=== PATIENT | male | born 1960 | race Caucasian/White ===

== ENCOUNTER 2016-11-16 05:52 | Inpatient (IN) | payer OTHER ==
[~2016-11-16] VITALS: Ht 193 cm; Wt 107.3 kg
[2016-11-16] VITALS (33 sets, daily range): BP systolic 96–122; BP diastolic 53–85; PULSE 54–76; RESP 8–23; Ht 193 cm; Wt 107.3 kg
[2016-11-16] MEDS ORDERED: LACTATED RINGER'S 1,000 ML IV SCH (06:30)
[2016-11-16] MEDS ORDERED: CEFAZOLIN 2 GM/50 ML (PMX) 50 ML IVPB ONE (06:30)
[2016-11-16] MEDS ORDERED: SUCCINYLCHOLINE CHLORIDE 100 MG/5 ML SYG IV ONE (06:59)
[2016-11-16] MEDS ORDERED: PROPOFOL 20 ML ONE (06:59)
[2016-11-16] MEDS ORDERED: FENTAnyl 50 MCG/ML VIAL ONE (06:59)
[2016-11-16] MEDS ORDERED: ROCURONIUM 50 MG INJ ONE (06:59)
[2016-11-16] MEDS ORDERED: ONDANSETRON 4 MG INJ ONE (06:59)
[2016-11-16] MEDS ORDERED: POLYMYXIN/BACITRACIN 1L IRRIG ONE ×2 (07:02→09:38)
[2016-11-16] MEDS ORDERED: LEVO150T67 PO (07:14)
[2016-11-16] MEDS ORDERED: ZIAC5 PO (07:14)
[2016-11-16] MEDS ORDERED: ATOR10TA65 PO (07:14)
--- NOTE | 2016-11-16 07:34 | HPN ---
Date/Time of Note Date/Time of Note DATE: 11/16/16 TIME: 07:34 Interval H&P Admission Note Pt. seen H&P reviewed: No system changes WAYNE DRAKE MD November 16, 2016 07:34
[2016-11-16] MEDS ORDERED: VANCOMYCIN 1 GM INJ ONE (07:44)
[2016-11-16] MEDS ORDERED: VANCOMYCIN 1 GM (PMX) 250 ML ONE (07:56)
[2016-11-16] MEDS ORDERED: VANCOMYCIN 1.25 GM in SOD CHLORIDE 0.9% 250 ML IVPB ONE (08:00)
[2016-11-16] MEDS ORDERED: BACITRACIN/POLYMYXIN 28.35 GM OINT TOP ONE (08:12)
[2016-11-16] MEDS ORDERED: LIDOCAINE 0.5%/EPI (MDV) 50 ML INJ ONE (08:12)
[2016-11-16] MEDS ORDERED: BUPIVACAINE 0.5% (SDV) 30 ML INJ ONE (08:12)
[2016-11-16] MEDS ORDERED: hydrALAzine 20 MG INJ IV PRN (08:30)
[2016-11-16] MEDS ORDERED: MEPERIDINE 25 MG INJ IV PRN (08:30)
[2016-11-16] MEDS ORDERED: ONDANSETRON 4 MG INJ IV PRN ×2 (08:30→10:30)
[2016-11-16] MEDS ORDERED: HYDROmorphONE (0.2 MG/ML) 10ML SYG IV PRN ×3 (08:30)
[2016-11-16] MEDS ORDERED: LABETALOL HCL 20MG INJ IV PRN (08:30)
[2016-11-16] MEDS ORDERED: FENTAnyl 50 MCG/ML VIAL IV PRN (08:30)
[2016-11-16] MEDS ORDERED: NALOXONE (0.4 MG/ML) INJ IV PRN (10:30)
[2016-11-16] MEDS ORDERED: NACL 0.9% 3 ML SYG IV SCH (10:30)
[2016-11-16] MEDS ORDERED: ACETAMINOPHEN/CODEINE #3 TAB PO PRN ×2 (10:30→14:00)
--- NOTE | 2016-11-16 10:43 | OPR ---
Date/Time of Note Date/Time of Note DATE: 11/16/16 TIME: 10:40 Operative Report Procedure Date: November 16, 2016 Preoperative Diagnosis hydrocephalus Postoperative Diagnosis hydrocephalus Operation Performed right parietal ventriculoperitoneal shunt placement (Codman Certas set at 110) Surgeon: WAYNE DRAKE MD Anesthesia: general Estimated Blood Loss: 10 - 50 ml's Specimens CSF Tubes/Drains None Complications: None Pt Condition Post Procedure: stable Disposition: PACU Operative\Procedure Findings Raised OPening CSF pressure WAYNE DRAKE MD November 16, 2016 10:43
[2016-11-16] MEDS: FENTAnyl 50 MCG/ML VIAL IV PRN ×2 (10:45→10:56)
--- NOTE | 2016-11-16 11:49 | OPR ---
DATE OF OPERATION: 11/16/2016 SURGEON: Davin Drake MD PREOPERATIVE DIAGNOSES: Hydrocephalus. POSTOPERATIVE DIAGNOSES: Hydrocephalus. OPERATION PERFORMED: Right parietal bur hole craniectomy for placement of ventriculoperitoneal shun t (programmable Codman Certas shunt valve programmed at a pressure of 110). INDICATION FOR PROCEDURE: This is a 56-year-old male with history of what appears to be triventricu lomegaly for at least the past year who had a fall about a year ago and was found to have ventriculo megaly, but the patient apparently was not given the diagnosis of probable hydrocephalus. The patie nt more recently had a syncopal or presyncopal episode while he was driving, went to a [facility] where he was worked up for a stroke. He was ruled out to have a stroke, but was felt to have h ad possible transient ischemic attack. As part of his imaging studies, he had MRI and a CT of the b rain that again showed the enlarged ventricles, no evidence of a tumor was found. The patient has no t had any previous evidence of meningitis or intracranial infection, so the etiology of the hydrocep halus is not exactly clear. It is possible that the patient may have normal pressure hydrocephalus based on his symptoms of gait ataxia, some difficulty with his memory, as well as some difficulty wi th urination. The patient has had several episodes where he has had an accident and has wet himself . However, the patient does not have any somnolence or lethargy or nausea or vomiting. The risks a nd benefits of the above operation were explained in great detail to the patient, his daughter, his sister, and several of his friends including the seed corn production manager of his apartment and one of his long-term f riends after the patient visited my office 2 different times, and also I spoke with some of the [facility] family members over the phone and in person. We discussed the various treatment options including further observation versus surgical intervention with the understanding that even with the above op eration, the patient's symptoms may not resolve. So the patient understood these findings and decid ed to proceed with the above surgery. DESCRIPTION OF OPERATIVE PROCEDURE: The patient was brought to the operating room and placed supine on the operating table. After general anesthesia was obtained, the patient's head was turned towar ds the left exposing his right scalp. Then, the right parietal boss was located, then a curvilinear incision pointing inferiorly was marked. A small strip of hair was then shaven in this region. Al so a linear incision over the right paramedian area in the right upper quadrant was marked over the patient's abdomen. Given the fact that the patient is over 6 feet 3 inches and even the longest shirley nt tunneler did not appear to be long enough, a small area for a stab incision was marked over the p atient's sternum for possible need to do tunneling for the catheter. After the skin was prepped and draped under standard sterile fashion, local anesthetics were infiltrated into the marked right sca lp incision as well as the right upper quadrant abdominal incision. Attention was first paid to the abdominal incision. The incision was then made all the way down to the fascia. The external rectu s sheath was then incised. The rectus muscle fibers were then , and the posterior rectus s zora was reached. The posterior rectus sheath was cut. The peritoneal layer was located. It was then cut. Then the omental fat and part of the intestine was located. The tonsils were placed arou nd the layers of the peritoneum. At this point, attention was turned towards the right scalp. The right scalp incision was then cut down to the level of the skull and a small cutaneous flap was rota kendrick inferiorly. We then tunneled between the scalp incision and the abdomen. The longest tunneler, as suspected, was not long enough, so the tunneler was then brought out from the area that we had m arked for the stab incision after making a stab incision. We then re-tunneled from that side into t he abdomen. A suture was used in order to be able to tunnel the distal Bactiseal shunt tubing betwe en the scalp and the abdomen. Prior to doing that, the Bactiseal distal shunt catheter was connecte d to the Codman Certas shunt valve that was preprogrammed to a pressure of 110. The shunt valve and the distal shunt tubing was also primed with normal saline. Prior to also tunneling the distal cat heter and the shunt valve, using the pipe wrapping machine operator we made a bur hole into the exposed right skull all the way down to the level of the dura. After the distal shunt catheter and the shunt valve were south neled, the dura was then coagulated. A small durotomy was made with an 11 blade. Complete hemostas is was obtained. Then, the proximal shunt catheter was then inserted almost perpendicular to the sk ull. After inserting the catheter be less than 3 cm a puncture was felt through the ependymal surfa ce, and a clear cerebrospinal fluid was seen gushing out under grossly increased pressure. The styl et for the proximal shunt catheter was removed, and the proximal shunt catheter was then further ins erted in a soft fashion into the ventricle. Several mL of CSF were removed to be sent for CSF panel including protein, glucose, cell count, Gram stain, and culture. The excess proximal shunt cathete r was cut. It was then connected to the proximal part of the shunt valve. Both of the shunt connec tions proximally and distally to the shunt valve were secured in position with a suture. We then al so were able to easily aspirate clear CSF from the distal shunt tubing. The distal shunt tubing was then inserted into the intraperitoneal space without any resistance. All 3 incisions were then irr igated with antibiotic solution. The rectus sheath was then reapproximated with interrupted sutures , the dermal layer at the abdomen was reapproximated with interrupted sutures, and the skin at abdom en was reapproximated with Dermabond. The scalp was reapproximated at the level of the galea with i nterrupted sutures, and the skin was reapproximated with a simple running Rapide 3-0 suture. The sm all stab incision by the right sternum was reapproximated with interrupted sutures, and the skin was reapproximated with Dermabond. A thin film of triple antibiotic ointment was placed over the scalp incision. The patient was then placed on the hospital bed. He was then woken up, extubated, and t ransferred to the recovery room in stable condition. ESTIMATED BLOOD LOSS: 25 mL. BLOOD PRODUCTS ADMINISTERED: None. ANESTHESIA TYPE: General. INCISION: Right parietal scalp, right sternum, and right upper quadrant abdomen. SKIN CLOSURE: Dermabond for the abdomen and the right sternum, and simple running Rapide 3-0 suture for the right scalp. CONDITION: Stable. PROGNOSIS: Good. WOUND CLASSIFICATION: Clean. PACKS AND DRAINS: None. BLOOD PRODUCTS ADMINISTERED: None. SPECIMEN REMOVED: CSF for CSF panel. WOUND CLASSIFICATION: Clean. Dictated By: DAVIN DRAKE MD, SA/NEEL Conf#: [id number] [facility]#: [id number]
[2016-11-16] MEDS: DEXTROSE 5%-0.45% NACL 1,000 ML IV SCH ×2 (13:29→20:28)
[2016-11-16] MEDS: BISOPROLOL XX SCH ×2 (13:30→20:00)
[2016-11-16] MEDS: FAMOTIDINE 20 MG INJ IV SCH ×2 (13:30→20:29)
[2016-11-16] MEDS: HYDROCHLOROTHIAZIDE XX SCH ×2 (13:30→20:00)
[2016-11-16] MEDS: HYDROmorphONE 1 MG/ML SYG IV PRN ×9 (14:14→23:33)
--- NOTE | 2016-11-16 14:45 | PN ---
Date/Time of Note Date/Time of Note DATE: 11/16/16 TIME: 14:37 Assessment/Plan VTE Prophylaxis VTE Prophylaxis Intervention: SCD's Lines/Catheters IV Catheter Type (from Nrsg): Peripheral IV Assessment/Plan Assessment/Plan 56 yo male: 1. Hydrocephalus s/p Right parietal bur hole craniectomy for placement of ventriculoperitoneal shunt (programmable Codman Certas shunt valve programmed at a pressure of 110). POD#0 Pain control Post procedure CT head pending 2. Hypothyroidism: continue Synthroid 3. Hyperlipidemia: continue Lipitor Prophylaxis: SCds or DVT px and Pepcid for GI ppx Disposition: per Neurosurgery Subjective 24 Hr Interval Summary Free Text/Dictation Patient complaining of RINCON otherwise no other complaints Exam/Review of Systems Vital Signs Vitals Vital Signs Date Time Temp Pulse Resp B/P Pulse Ox O2 Delivery O2 Flow Rate FiO2 11/16/16 12:58 98.0 65 19 106/71 98 11/16/16 11:06 Nasal Cannula 3.0 Exam Constitutional: alert, oriented, well developed Head: other (s/p SOLUTION STRATEGIST shunt today ) Respiratory: clear to auscultation, normal air movement Cardiovascular: nl pulses, regular rate and rhythm Gastrointestinal: non-tender, soft Musculoskeletal: nl extremities to inspection Extremities: normal pulses, other (no edema, clubbing or cyanosis) Neurological: PARTS CLASSIFIER II-XII intact, nl mental status, nl speech Medications Medications Current Medications Lactated Ringer's 1,000 ml @ 0 mls/hr Q0M IV ; Start 11/16/16 at 06:30 Dextrose/Sodium Chloride 1,000 ml @ 100 mls/hr Q10H IV Last administered on t 13:29; Admin Dose 100 MLS/HR; Start 11/16/16 at 10:28 Vancomycin HCl (Vancocin) 250 ml @ 125 mls/hr Q12H IVPB ; Start 11/16/16 at 18: 00; Stop 11/17/16 at 07:59 Ondansetron HCl (Zofran Inj) 4 mg Q6H PRN IV NAUSEA AND/OR VOMITING; Start at 10:30 Docusate Sodium (Colace) 100 mg BID PO ; Start 11/17/16 at 09:00 Naloxone HCl (Narcan) 0.2 mg Q2M PRN IV RR 8 BREATHS/MIN OR LESS; Start at 10:30 Neomycin/ Polymyxin/ Bacitracin (Neosporin Topical Oint) 1 applic BID TOP ; Start 11/16/16 at 21:00 Famotidine (Pepcid Iv) 20 mg BID IV Last administered on 11/16/16 13:30; Admin Dose 20 MG; Start 11/16/16 at 10:30 Atorvastatin Calcium (Lipitor) 10 mg QHS PO ; Start 11/16/16 at 21:00 Bisoprolol Fumarate/HCTZ (Ziac (5/6.25)) 1 tab DAILY PO ; Start 11/17/16 at 09: 00; Status UNV Miscellaneous Information (*Order Clarification Bulletin) MEDICATION REQUIRES CLARIFICATION: Q8H XX ; Start 11/16/16 at 12:00 Acetaminophen/ Codeine Phosphate (Tylenol No.3) 2 tab Q6H PRN PO PAIN LEVEL 1-5 ; Start 11/16/16 at 14:00 Hydromorphone HCl (Dilaudid) 0.4 mg Q1H PRN IV severe PAIN Last administered on 11/16/16 14:14; Admin Dose 0.4 MG; Start 11/16/16 at 14:00 PATRICE MITCHELL November 16, 2016 14:45
--- NOTE | 2016-11-16 16:15 | RADRPT ---
PROCEDURE: X-ray, Abdomen. CLINICAL INDICATION: Post ventriculoperitoneal shunt placement. TECHNIQUE: Abdominal x-ray, AP upright and left lateral decubitus views. COMPARISON: None. FINDINGS: A nonobstructive bowel gas pattern is present. There is no evidence of free intra-abdominal air. T here are no abnormal calcifications. Ventriculoperitoneal shunt tubing projects over the lower aspe ct of the right chest into the right side of the abdomen. The visualized portions of the shunt tubi ng appear intact. Skeletal structures are unremarkable. IMPRESSION: No evidence of acute intra-abdominal pathology. Ventriculoperitoneal shunt tubing within the right side of the abdomen. RPTAT: HLST .Yuliana Das MD, MD Date Time Electronically viewed and signed by .Yuliana Das MD, on 11/16/2016 16:15 .T/
--- NOTE | 2016-11-16 16:19 | RADRPT ---
PROCEDURE: CT Head without contrast. CLINICAL INDICATION: Post LOCOMOTIVE OBSERVER shunt placement TECHNIQUE: The study was performed utilizing a GE 64-slice multidetector CT scanner. Direct spiral axial CT images of the brain were obtained from the vertex to the skull base without contrast. Cor onal and sagittal reformat images are provided. The CTDI vol is 45.01 mGy and the DLP is 720.23 mGy -cm. The images were reviewed on a PACS workstation. COMPARISON: No prior studies are available for comparison. FINDINGS: A right transparietal ventriculoperitoneal shunt is seen with the tip in the foramen of Monro. Soft tissue swelling with air in the right parietal scalp is seen. Diffuse hydrocephalus is seen and is most prominent in the lateral and third ventricles. The bifrontal horn diameter is 5.1 cm. The gr ay-white matter differentiation is maintained. No intra or extra-axial fluid collection or mass eff ect or shift in the midline structures is seen. The visualized paranasal sinuses, mastoid air cells , orbits, and calvarium are unremarkable. IMPRESSION: Right transparietal ventriculoperitoneal shunt with diffuse hydrocephalous which is most prominent i n the lateral and third ventricles. RPTAT: HPNM Physician Michael Date Time Electronically viewed and signed by Physician Michael on 11/16/2016 16:18 /
[2016-11-16] MEDS: VANCOMYCIN 1 GM (PMX) 250 ML IVPB SCH (17:15)
[2016-11-16 20:28] LABS: GLUCOSE,CSF 71 mg/dl (50-80)
[2016-11-16] MEDS ORDERED: ATORVASTATIN 10 MG TAB PO SCH (21:00)
[2016-11-16] MEDS: NEOMYC/POLYMYX/BACIT 30 GM OINT TOP SCH (21:00)
[2016-11-16 21:05] LABS: %CREANATED RBC CSF 0 %; CSF COLOR COLORLESS; CSF VOLUME 5.5 ml; CSF#TUBE COUNT TUBE#1; CSF#TUBES REC'D 1
[2016-11-17] VITALS: BP 100/52; RESP 20
[2016-11-17] MEDS: HYDROmorphONE 1 MG/ML SYG IV PRN ×7 (00:30→06:45)
[2016-11-17] MEDS: DEXTROSE 5%-0.45% NACL 1,000 ML IV SCH (02:36)
[2016-11-17] MEDS: BISOPROLOL XX SCH (04:00)
[2016-11-17] MEDS: HYDROCHLOROTHIAZIDE XX SCH (04:00)
[2016-11-17 04:46] VITALS: BP 96/55; PULSE 79; RESP 18
[2016-11-17 05:23] LABS: HEMOGLOBIN 15.1 g/dl (14.0-18.0)
[2016-11-17 05:37] LABS: POTASSIUM 3.7 mmol/L (3.5-5.1)
[2016-11-17 05:40] LABS: CREATININE 0.92 mg/dl (0.61-1.24)
[2016-11-17] MEDS: VANCOMYCIN 1 GM (PMX) 250 ML IVPB SCH (05:43)
[2016-11-17] MEDS ORDERED: LEVOTHYROXINE 150 MCG TAB PO SCH (07:00)
[2016-11-17 07:20] VITALS: BP 100/52; RESP 19
[2016-11-17] MEDS: FAMOTIDINE 20 MG INJ IV SCH (08:54)
[2016-11-17] MEDS: NEOMYC/POLYMYX/BACIT 30 GM OINT TOP SCH (08:54)
[2016-11-17] MEDS ORDERED: DOCUSATE SODIUM 100 MG CAP PO SCH (09:00)
[2016-11-17] MEDS ORDERED: HYDROCHLOROTHIAZIDE 25 MG TAB PO SCH (11:30)
[2016-11-17] MEDS ORDERED: BISOPROLOL 5 MG TAB PO SCH (11:30)
[2016-11-17] MEDS ORDERED: HYDROCODONE/APAP (10/325) TAB PO PRN (12:00)
--- NOTE | 2016-11-17 12:02 | PDOCDIS ---
Discharge Instructions CONDITION Patient Condition: Stable HOME CARE INSTRUCTIONS: Diet Instructions: Regular ACTIVITY: Activity Restrictions: Slowly Increase Activity FOLLOW UP/APPOINTMENTS Appointments Follow up with PCP within 1 week Follow up with Dr Marie in 1 week PATRICE MITCHELL November 17, 2016 12:01
[2016-11-17] MEDS ORDERED: Hydrocodone/Apap (10/325) PO (12:03)
[2016-11-17] MEDS ORDERED: NEOM28OI TOP (12:04)
--- NOTE | 2016-11-17 12:13 | PN ---
Date/Time of Note Date/Time of Note DATE: 11/17/16 TIME: 12:06 Assessment/Plan VTE Prophylaxis VTE Prophylaxis Intervention: SCD's Lines/Catheters IV Catheter Type (from Nrsg): Saline Lock Assessment/Plan Assessment/Plan 56 yo male: 1. Hydrocephalus s/p Right parietal bur hole craniectomy for placement of ventriculoperitoneal shunt (programmable Codman Certas shunt valve programmed at a pressure of 110). POD#1 Pain control with [place] for home Per Dr Frank Ford to d/c home and follow up with him in 1 week FWW for home 2. Hypothyroidism: continue Synthroid 3. Hyperlipidemia: continue Lipitor Prophylaxis: SCds or DVT px and Pepcid for GI ppx Disposition: per Neurosurgery cait to d/c home today Subjective 24 Hr Interval Summary Free Text/Dictation Patient doing well Sitting up in chair and stable for discharge today per Neurosurgery Exam/Review of Systems Vital Signs Vitals Vital Signs Date Time Temp Pulse Resp B/P Pulse Ox O2 Delivery O2 Flow Rate FiO2 11/17/16 07:20 98.0 76 19 100/52 98 11/16/16 13:00 Nasal Cannula 2.0 Intake and Output 11/16/16 11/16/16 11/17/16 15:00 23:00 07:00 Intake Total 700 ml 500 ml 800 ml Output Total 225 ml 300 ml 1000 ml Balance 475 ml 200 ml -200 ml Exam Constitutional: alert, oriented, well developed Neck: supple Respiratory: clear to auscultation, normal air movement Cardiovascular: nl pulses, regular rate and rhythm Gastrointestinal: non-tender, soft Musculoskeletal: nl extremities to inspection, other (need FWW for home ) Neurological: WELL LOGGING CAPTAIN MUD ANALYSIS II-XII intact, nl mental status, nl speech, other (s/p FIRE SERVICES PLUMBER shunt ) Results Result Diagram: 11/17/16 0500 11/17/16 0500 Results 24 hrs Laboratory Tests Test 11/17/16 05:00 Hemoglobin 15.1 Hematocrit 45.0 Sodium Level 138 Potassium Level 3.7 Chloride Level 104 Carbon Dioxide Level 25 Anion Gap 13 Blood Urea Nitrogen 18 Creatinine 0.92 Glucose Level 102 Calcium Level 9.0 Medications Medications Current Medications Lactated Ringer's 1,000 ml @ 0 mls/hr Q0M IV ; Start 11/16/16 at 06:30 Dextrose/Sodium Chloride (D5-1/2ns) 1,000 ml @ 100 mls/hr Q10H IV Last administered on 11/17/16 02:36; Admin Dose 100 MLS/HR; Start 11/16/16 at 10:28 Ondansetron HCl (Zofran Inj) 4 mg Q6H PRN IV NAUSEA AND/OR VOMITING; Start at 10:30 Docusate Sodium (Colace) 100 mg BID PO Last administered on 11/17/16 08:54; Admin Dose 100 MG; Start 11/17/16 at 09:00 Naloxone HCl (Narcan) 0.2 mg Q2M PRN IV RR 8 BREATHS/MIN OR LESS; Start at 10:30 Neomycin/ Polymyxin/ Bacitracin (Neosporin Topical Oint) 1 applic BID TOP Last administered on 11/17/16 08:54; Admin Dose 1 APPLIC; Start 11/16/16 at 21:00 Famotidine (Pepcid Iv) 20 mg BID IV Last administered on 11/17/16 08:54; Admin Dose 20 MG; Start 11/16/16 at 10:30 Atorvastatin Calcium (Lipitor) 10 mg QHS PO Last administered on 11/16/16 20: 29; Admin Dose 10 MG; Start 11/16/16 at 21:00 Bisoprolol Fumarate (Zebeta) 5 mg DAILY PO ; Start 11/17/16 at 11:30 Hydromorphone HCl (Dilaudid) 0.4 mg Q1H PRN IV severe PAIN Last administered on 11/17/16 06:45; Admin Dose 0.4 MG; Start 11/16/16 at 14:00 Hydrochlorothiazide (Hydrochlorothiazide) 6.25 mg DAILY PO ; Start 11/17/16 at 11:30 Acetaminophen/ Hydrocodone Bitart ([place] (10/325)) 1 tab Q6H PRN PO PAIN; Start 11/17/16 at 12:00 PATRICE MITCHELL November 17, 2016 12:13
--- NOTE | 2016-11-17 14:05 | RADRPT ---
PROCEDURE: XR Abdomen. CLINICAL INDICATION: BLOCK BREAKER shunt placement. TECHNIQUE: 6 views of the abdomen are available for review. COMPARISON: 11/16/2016 FINDINGS: A BLOCK BREAKER shunt is seen overlying the right abdomen with the tip curling within the abdominal wall soft t issues of the right paramidline lower abdomen. On the lateral view the shunt tubing does not appear to extend into the intraperitoneal cavity. The bowel gas pattern is unremarkable. Osseous structur es are intact. IMPRESSION: BLOCK BREAKER shunt tip curls within the anterior abdominal wall of the right paramidline lower abdomen and griggs s not appear to extend intraperitoneally. Findings discussed with nurse Lucía for Dr Marie on 11/17/2016 at 01:56 p.m. RPTAT: JJ .Reji Stacy MD, Date Time Electronically viewed and signed by .Reji Stacy MD, on 11/17/2016 14:04 .A/
--- NOTE | 2016-11-17 15:37 | RADRPT ---
PROCEDURE: CT abdomen and pelvis without contrast. CLINICAL INDICATION: MARKETING LIAISON shunt catheter placement. Evaluate for catheter location. TECHNIQUE: CT of the abdomen and pelvis without contrast was performed on a multidetector high-resolution CT [facility]. Coronal and sagittal reformatted images were obtained from the axial source images. Images we re reviewed on a high-resolution PACS workstation. The total exam CTDI equals 22.56 mGy and the tota l exam DLP equals 1512.59 mGy-cm. One or more of the following dose reduction techniques were used: - Automated exposure control. - Adjustment of the mA and/or kV according to patient size. - Use of iterative reconstruction technique. COMPARISON: Plain film dated 11/17/2016 and 11/16/2016. FINDINGS: Visualized lower thorax: There is subsegmental atelectasis within the lateral and posterobasal segments of the left lower lob e and lingula. The visualized right lung is clear. The visualized heart is unremarkable. There is a moderate hiatal hernia. Hepatobiliary system and spleen: The liver is grossly unremarkable. There is no intra or extrahepatic biliary ductal dilatation. The gallbladder is grossly unremarkable. The spleen is grossly unremarkable. The pancreas is grossly unr emarkable. Adrenal glands and genitourinary system: The adrenal glands are grossly unremarkable. There is an 8.5 cm simple cyst at the midportion of the right kidney. There is no nephrolithiasis or hydronephrosis. The urinary bladder is grossly unrema rkable. The prostate gland is enlarged measuring 6.7 cm in axial dimension. The seminal vesicles ar e grossly unremarkable. There is a small fat containing left inguinal hernia. Gastrointestinal system: There is pancolonic diverticulosis without bowel wall thickening or evidence of obstruction. The ap pendix is in the right lower quadrant and is unremarkable. There is a MARKETING LIAISON shunt catheter tubing seen within the right lower chest ventral subcutaneous tissues entering the peritoneal cavity at the vent ral mid abdomen with the catheter tubing within the ventral mid abdomen peritoneal cavity. There is inflammatory change and subcutaneous emphysema within the ventral abdominal subcutaneous tissues an d there are small foci of free intraperitoneal air adjacent to the catheter tubing, likely postproce dural in nature. Peritoneum, vascular, and lymphatics: There is no free fluid within the abdomen or pelvis. There is no mesenteric or retroperitoneal adeno lizeth. The aorta is nonaneurysmal. Musculoskeletal system: There are no concerning osseous lesions. There is moderate to severe degenerative spondylosis at L5- S1, which combined with facet arthropathy on the right, causes severe right L5 neural foraminal narr owing. IMPRESSION: 1. Postoperative change related to MARKETING LIAISON shunt catheter placement with the distal tubing residing in t he ventral mid abdominal peritoneal cavity. 2. Moderate hiatal hernia. 3. Simple 8.5 cm cyst at the midportion of the right kidney. 4. Enlarged prostate gland. Correlate with PSA. 5. Small fat containing left inguinal hernia. 6. Pancolonic diverticulosis. 7. Moderate to severe degenerative spondylosis at L5-S1, right-sided facet arthropathy, and severe right L5 neural foraminal narrowing. RPTAT: GG .Sumanth Link MD, MD Date Time Electronically viewed and signed by .Sumanth Link MD, on 11/17/2016 15:37 .P/
== END 2016-11-17 18:50 | disposition home or self-care (01) | DRG 33 ==
LOC: REC 05:52 → MS1 12:36
PROVIDERS: ADMIT Neurological Surgery; ATTEND Neurological Surgery
PROC: 00163J6 Bypass Cerebral Ventricle to Peritoneal Cavity with Synthetic Substitute, Percutaneous Approach (ICD-10-PCS; principal; 2016-11-16 07:30)
DX: G91.9 Hydrocephalus, unspecified (principal); I10 Essential (primary) hypertension; E03.9 Hypothyroidism, unspecified; E78.5 Hyperlipidemia, unspecified
CPT/HCPCS: 70450; 74000; 74010; 74176; 80048; 82945; 84157; 85014; 85018; 86850; 86900; 86901; 87070; 89050; 97162; J1170; J2175; J2405; J3010; J3370; J7042; J7050; J7999